=== PATIENT | female | born 1975 | race Caucasian/White ===

== ENCOUNTER 2022-07-18 18:04 | Emergency (ER) | payer OTHER ==
[~2022-07-18] VITALS: Ht 170.2 cm; Wt 54.9 kg
[2022-07-18 19:20] VITALS: BP 117/75
--- NOTE | 2022-07-18 19:27 | NUR ---
PT BIB BY [facility] FOR SUICIDAL IDEATIONS "CUTTING WRIST". REQUESTING VOLUNTARY ADMISSION TO [facility]. [phone]. PT FAMILY STATES "SHE HAS A BED AVAILABLE FOR HER".
[2022-07-18 20:23] LABS: BASOPHILS % (AUTO) 0.8 % (0.0-2.0); EOSINOPHILS % (AUTO) 1.1 % (0.0-6.0); HEMATOCRIT 39 % (33-45); HEMOGLOBIN 12.5 g/dL (11.5-14.8); LYMPHOCYTES # (AUTO) 2.1 K/uL (0.8-4.8); LYMPHOCYTES % (AUTO) 34.9 % (20.0-44.0); MEAN CORPUSCULAR HGB CONC 32 g/dl (31.0-36.0); MEAN CORPUSCULAR VOLUME 80 fL (82-100); MONOCYTES # (AUTO) 0.5 K/uL (0.1-1.30); MONOCYTES % (AUTO) 7.8 % (2.0-12.0); NEUTROPHILS # (AUTO) 3.4 K/uL (1.8-8.9); NEUTROPHILS % (AUTO) 55.4 % (43.0-81.0); PLATELET COUNT (AUTO) 288 K/uL (150-450); RED BLOOD CELL COUNT(AUTO) 4.92 MIL/uL (4.0-5.2); WHITE BLOOD COUNT (AUTO) 6.1 K/uL (4.3-11.0)
[2022-07-18 20:32] LABS: CALCIUM, SERUM 10.1 mg/dL (8.5-10.1); CARBON DIOXIDE 34 mmol/L (21-32); CHLORIDE 104 mmol/L (98-107); CREATININE 0.9 mg/dL (0.6-1.3); GLUCOSE 103 mg/dL (74-106); POTASSIUM 4.9 mmol/L (3.5-5.1); SODIUM SERUM 139 mmol/L (136-145); UREA NITROGEN, BLOOD 16 mg/dL (7-18)
[2022-07-18 20:40] LABS: ALANINE AMINOTRANSFERASE 16 U/L (12-78); ALBUMIN 4.3 g/dL (3.4-5.0); ALCOHOL, BLOOD < 3 mg/dL (0-0); ALKALINE PHOSPHATASE 46 U/L (46-116); ASPARTATE AMINOTRANSFERASE 13 U/L (15-37); BILIRUBIN,DIRECT 0.1 mg/dL (0.0-0.2); BILIRUBIN,TOTAL 0.4 mg/dL (0.2-1.0); TOTAL PROTEIN, SERUM 7.4 g/dL (6.4-8.2)
[2022-07-18 21:05] LABS: BILIRUBIN,URINE NEGATIVE (NEGATIVE); COLOR,URINE YELLOW (YELLOW); LEUKOCYTE ESTERASE ,URINE 1+ (NEGATIVE); NITRITE, URINE NEGATIVE (NEGATIVE); PH,URINE 6.5 (5.0-8.0); PROTEIN,URINE NEGATIVE (NEGATIVE); UGLUCOSE NEGATIVE (NEGATIVE)
[2022-07-18 21:31] LABS: BACTERIA,URINE 1+ /HPF (None Seen); CALCIUM OXALATE CRYSTALS,UR Many /HPF (None Seen); RBC,URINE 0-2 /HPF (0-2)
[2022-07-18 21:32] LABS: URINE AMORPHOUS URATE Moderate /HPF (None Seen)
--- NOTE | 2022-07-18 23:02 | NUR ---
FACESHEET AND CLINICALS FAXED TO [facility]
--- NOTE | 2022-07-19 01:11 | NUR ---
REFAXED FACESHEET AND CLINICALS TO [phone]
--- NOTE | 2022-07-19 01:58 | NUR ---
PT GOING TO [facility] UNDER DR ZAMORA NUMBER FOR REPORT IS [phone] EXT [phone]
--- NOTE | 2022-07-19 02:01 | NUR ---
PT GOING TO [facility] AT 10 AM VIA [facility].
--- NOTE | 2022-07-19 02:13 | NUR ---
TONO (DAUGHTER)- CALL WHEN TRANSPORTATION ARRIVES.
--- NOTE | 2022-07-19 06:20 | NUR ---
REPORT GIVEN TO LORELEI MERA FOR CONTINUATION OF CARE.
--- NOTE | 2022-07-19 06:36 | NUR ---
[facility] AT BEDSIDE FOR TRANSPORT TO [facility]
== END 2022-07-19 07:04 ==
LOC: ER 18:15
DX: R45.851 Suicidal ideations (principal); S61.512A Laceration without foreign body of left wrist, initial encounter; X78.9XXA Intentional self-harm by unspecified sharp object, initial encounter; Y92.89 Other specified places as the place of occurrence of the external cause; Z91.52 Personal history of nonsuicidal self-harm; Z20.822 Contact with and (suspected) exposure to COVID-19
CPT/HCPCS: 99285; 85025; 80048; 87086; 80076; 84703; 81001; 36415; 87426; 80143; 80320; 80307; C9803; G0480